=== PATIENT | male | born 2005 | race African-American/Black ===

== ENCOUNTER 2024-06-29 16:43 | Emergency (ER) | payer OTHER, SELFPAY ==
--- NOTE | ~2024-06-29 | XR_ITS ---
CHEST RADIOGRAPH, PA AND LATERAL CLINICAL HISTORY: CP that radiates down left arm . COMPARISON: None available TECHNIQUE: PA and lateral views of the chest. FINDINGS The cardiomediastinal silhouette is unremarkable. The lungs are clear. Visualized osseous structures and soft tissues are unremarkable. IMPRESSION: No focal infiltrate or effusion. Reviewed, dictated and finalized at location A. RE SYSTEMS ADMINISTRATOR
--- NOTE | 2024-06-29 16:45 | ECG_ITS ---
Test Date: 2024-06-29 16:49:21 Measurements Intervals [place] Rate: 73 P: 48 CT: 138 QRS: 10 QRSD: 84 T: 37 QT: 361 QTc: 398 Interpretive Statements SINUS RHYTHM DELAYED PRECORDIAL R/S TRANSITION BASELINE ARTIFACT- I, III, AVR, AVL, AVF BORDERLINE ECG No previous ECG available for comparison Electronically Signed On 06-29-2024 16:54:06 EXHIBITS CURATOR by Serjio Torres D.O.
--- NOTE | 2024-06-29 16:50 | ED_ITS ---
HPI - Chest Pain General Chief Complaint: Chest Pain <Leslee Samano PA-C - Last Filed: 06/29/24 16:51> Stated Complaint: chest pain <Leslee Samano PA-C - Last Filed: 06/29/24 16:51> Time Seen by Provider: 06/29/24 16:50 <Leslee Samano PA-C - Last Filed: 06/29/24 16:51> Focused HPI: This is a 18 year old male that presents to the ER for chest pain ongoing since this morning. The pain is tight in nature. Denies fever, cough, shortness of breath, lower extremity edema. GENERAL: Well-appearing, well-nourished, and in no acute distress. HEAD: Normocephalic, atraumatic. CHEST: Clear to auscultation. ?No respiratory distress. HEART: Regular rate and rhythm.? NEURO: ?Alert and oriented x3. Patient screened in triage and initial orders placed.? ?Additional care and disposition to be based upon?diagnostic testing and treatment. <Leslee Samano PA-C - Last Filed: 06/29/24 16:51> History of Present Illness HPI narrative: Patient is a 18-year-old gentleman who presents emergency department chief complaint of chest pain. The patient reports he started having pain this morning reports the left side of his chest and in the left shoulder area. The patient denies diaphoresis denies shortness of breath patient reports no trauma reports no prior cardiac history reports no significant of history of thromboembolic events or family history for high risk illness. <Eliot Tavarez MD - Last Filed: 06/29/24 21:02> Review of Systems Review of Systems: A 10 system review of systems was completed on the patient and is negative except for what is stated in the HPI. Nursing and ancillary documentation was reviewed. <Eliot Tavarez MD - Last Filed: 06/29/24 21:02> Exam Narrative: GENERAL: Well-appearing, well-nourished, and in no acute distress. HEAD: Normocephalic, atraumatic. EYES: PERRLA and EOMI. ENT: Nares clear, no rhinorrhea or epistaxis. Mucous membranes moist. NECK: Supple. CHEST: Clear to auscultation. No respiratory distress. HEART: Regular rate and rhythm. No murmur heard. Normal peripheral pulses. ABDOMEN: Soft, nontender, nondistended, normal active bowel sounds. EXTREMITIES: Normal range of motion. No edema. SKIN: Warm, dry, no rash. NEURO: No focal deficits. Alert and oriented x3. PSYCH: Normal mood and affect. <Eliot Tavarez MD - Last Filed: 06/29/24 21:02> Course Vital Signs Vital signs: Vital Signs Temperature 36.6 C 06/29/24 17:12 Pulse Rate 82 06/29/24 17:12 Respiratory Rate 18 06/29/24 17:12 Blood Pressure 145/90 H 06/29/24 17:12 Pulse Oximetry 100 06/29/24 17:12 Oxygen Delivery Room Air 06/29/24 17:12 Temperature 36.9 C 06/29/24 20:17 Pulse Rate 82 06/29/24 20:17 Respiratory Rate 16 06/29/24 20:17 Blood Pressure 130/90 06/29/24 20:17 Pulse Oximetry 100 06/29/24 20:17 Oxygen Delivery Room Air 06/29/24 19:33 <Leslee Samano PA-C - Last Filed: 06/29/24 16:51> Vital Signs Temperature 36.6 C 06/29/24 17:12 Pulse Rate 82 06/29/24 17:12 Respiratory Rate 18 06/29/24 17:12 Blood Pressure 145/90 H 06/29/24 17:12 Pulse Oximetry 100 06/29/24 17:12 Oxygen Delivery Room Air 06/29/24 17:12 Temperature 36.9 C 06/29/24 20:17 Pulse Rate 82 06/29/24 20:17 Respiratory Rate 16 06/29/24 20:17 Blood Pressure 130/90 06/29/24 20:17 Pulse Oximetry 100 06/29/24 20:17 Oxygen Delivery Room Air 06/29/24 19:33 <Eliot Tavarez MD - Last Filed: 06/29/24 21:02> MDM - Chest Pain MDM Narrative Medical decision making narrative: Differential diagnosis includes ACS, atypical chest pain, esophageal spasm, electrolyte abnormality, EKG showed no acute ischemic changes chest x-ray showed no focal infiltrate laboratory studies were obtained on the patient showed normal CBC normal CMP INR was 1 6 initial troponin was negative 3 hour repeat troponin is negative. <Eliot Tavarez MD - Last Filed: 06/29/24 21:02> Lab Data Result diagrams: 06/29/24 16:57 06/29/24 16:57 <Leslee Samano PA-C - Last Filed: 06/29/24 16:51> Labs: Lab Results 06/29/24 06/29/24 Range/Units 16:57 20:06 WBC 6.4 (4.5-10.0) K/mm3 RBC 5.15 (4.6-6.20) M/mm3 Hgb 14.4 (14.0-18.0) g/dL Hct 43.5 (42.0-52.0) % MCV 84.5 (80-100) fl MCH 28.0 (26-34) pg MCHC 33.1 (32-36) g/dl RDW 12.8 (11.5-14.5) % Plt Count 366 (150-375) k/mm3 MPV 10.3 (7.4-10.4) fl Immature Gran % (Auto) 0.2 (0-0.5) % Neut % (Auto) 50.1 (45.5-73.1) % Lymph % (Auto) 37.7 (18.3-44.2) % Parke % (Auto) 10.9 H (2.6-8.5) % Eos % (Auto) 0.5 (0-4.4) % Baso % (Auto) 0.6 (0.2-1.2) % Lymph # (Auto) 2.41 (0.9-3.2) K/mm3 Parke # (Auto) 0.7 H (0.1-0.6) K/mm3 Eos # (Auto) 0.0 (0-0.3) K/mm3 Baso # (Auto) 0.0 (0.0-0.1) K/mm3 Abs Immat Gran (auto) 0.01 (0.00-0.031) K/mm3 Absolute Neuts (auto) 3.2 (1.3-6.7) K/mm3 Absolute Nucleated RBC 0.000 (0.0-0.012) K/mm3 Nucleated RBC % 0.0 (0.0-0.2) % PT 19.4 H (11.1-14.7) Seconds INR 1.6 APTT 37.9 H (22.3-36.8) Seconds Sodium 139 (134-143) mmol/L Potassium 4.0 (3.4-5.0) mmol/L Chloride 104 (98-107) mmol/L Carbon Dioxide 27 (22-30) mmol/L Anion Gap 8 (4-12) mmol/L BUN 12 (8-21) mg/dL Creatinine 0.70 (0.7-1.3) mg/dL Estim Creat Clear Calc Not Reportable Estimated GFR > 60 (59 - ) Glucose 93 (65-110) mg/dL Calcium 9.2 (8.9-10.7) mg/dL Total Bilirubin 0.9 (0.2-1.3) mg/dL AST 32 (17-59) U/L ALT 38 (6-50) U/L Alkaline Phosphatase 110 (58-237) U/L Troponin I < 0.012 < 0.012 (0.000-0.034) ng/mL Total Protein 9.0 H (6.3-8.6) g/dL Albumin 4.6 (3.7-5.6) g/dL Lipase 46 (23-300) U/L <Leslee Samano PA-C - Last Filed: 06/29/24 16:51> Lab Results 06/29/24 06/29/24 Range/Units 16:57 20:06 WBC 6.4 (4.5-10.0) K/mm3 RBC 5.15 (4.6-6.20) M/mm3 Hgb 14.4 (14.0-18.0) g/dL Hct 43.5 (42.0-52.0) % MCV 84.5 (80-100) fl MCH 28.0 (26-34) pg MCHC 33.1 (32-36) g/dl RDW 12.8 (11.5-14.5) % Plt Count 366 (150-375) k/mm3 MPV 10.3 (7.4-10.4) fl Immature Gran % (Auto) 0.2 (0-0.5) % Neut % (Auto) 50.1 (45.5-73.1) % Lymph % (Auto) 37.7 (18.3-44.2) % Parke % (Auto) 10.9 H (2.6-8.5) % Eos % (Auto) 0.5 (0-4.4) % Baso % (Auto) 0.6 (0.2-1.2) % Lymph # (Auto) 2.41 (0.9-3.2) K/mm3 Parke # (Auto) 0.7 H (0.1-0.6) K/mm3 Eos # (Auto) 0.0 (0-0.3) K/mm3 Baso # (Auto) 0.0 (0.0-0.1) K/mm3 Abs Immat Gran (auto) 0.01 (0.00-0.031) K/mm3 Absolute Neuts (auto) 3.2 (1.3-6.7) K/mm3 Absolute Nucleated RBC 0.000 (0.0-0.012) K/mm3 Nucleated RBC % 0.0 (0.0-0.2) % PT 19.4 H (11.1-14.7) Seconds INR 1.6 APTT 37.9 H (22.3-36.8) Seconds Sodium 139 (134-143) mmol/L Potassium 4.0 (3.4-5.0) mmol/L Chloride 104 (98-107) mmol/L Carbon Dioxide 27 (22-30) mmol/L Anion Gap 8 (4-12) mmol/L BUN 12 (8-21) mg/dL Creatinine 0.70 (0.7-1.3) mg/dL Estim Creat Clear Calc Not Reportable Estimated GFR > 60 (59 - ) Glucose 93 (65-110) mg/dL Calcium 9.2 (8.9-10.7) mg/dL Total Bilirubin 0.9 (0.2-1.3) mg/dL AST 32 (17-59) U/L ALT 38 (6-50) U/L Alkaline Phosphatase 110 (58-237) U/L Troponin I < 0.012 < 0.012 (0.000-0.034) ng/mL Total Protein 9.0 H (6.3-8.6) g/dL Albumin 4.6 (3.7-5.6) g/dL Lipase 46 (23-300) U/L <Eliot Tavarez MD - Last Filed: 06/29/24 21:02> Discharge Plan Discharge Clinical Impression: Atypical chest pain <Leslee Samano PA-C - Last Filed: 06/29/24 16:51> Patient Disposition: Home, Self-Care <Leslee Samano PA-C - Last Filed: 06/29/24 16:51> Condition: Stable <Leslee Samano PA-C - Last Filed: 06/29/24 16:51> Instructions: Antibiotic Form, Chest Pain (ED) <Leslee Samano PA-C - Last Filed: 06/29/24 16:51> Follow-up/Referrals: Otoniel Douglas MD [Physician] - PHYSICIAN NOT ON STAFF,NONSTAFF [Non-Staff] - <Leslee Samano PA-C - Last Filed: 06/29/24 16:51> Time of Disposition: 20:59 <Leslee Samano PA-C - Last Filed: 06/29/24 16:51> 20:59 <Eliot Tavarez MD - Last Filed: 06/29/24 21:02>
[2024-06-29 17:01] LABS: Basophils Percent Auto 0.6 % (0.2-1.2); Eosinophils Percent Auto 0.5 % (0-4.4); Hematocrit 43.5 % (42.0-52.0); Hemoglobin 14.4 g/dL (14.0-18.0); Immature Granulocyte Absolute 0.01 K/mm3 (0.00-0.031); Immature Granulocyte Percent A 0.2 % (0-0.5); Lymphocytes Absolute Auto 2.41 K/mm3 (0.9-3.2); Lymphocytes Percent Auto 37.7 % (18.3-44.2); Mean Corpuscular HGB Conc 33.1 g/dl (32-36); Mean Corpuscular Volume 84.5 fl (80-100); Mean Platelet Volume 10.3 fl (7.4-10.4); Monocytes Absolute Auto 0.7 K/mm3 (0.1-0.6); Monocytes Percent Auto 10.9 % (2.6-8.5); Neutrophils Absolute Auto 3.2 K/mm3 (1.3-6.7); Neutrophils Percent Auto 50.1 % (45.5-73.1); Platelet Count Result 366 k/mm3 (150-375); Red Blood Count 5.15 M/mm3 (4.6-6.20); Red Cell Distribution Width 12.8 % (11.5-14.5); White Blood Count 6.4 K/mm3 (4.5-10.0)
[2024-06-29 17:12] VITALS: BP 145/90; PULSE 82; RESP 18; TEMP 36.6; O2SAT 100
[2024-06-29 17:14] LABS: INR 1.6; Prothrombin Time 19.4 Seconds (11.1-14.7)
[2024-06-29 17:16] LABS: Partial Thromboplastin Time 37.9 Seconds (22.3-36.8)
[2024-06-29 17:22] LABS: Alanine Aminotransferase 38 U/L (6-50); Albumin Level 4.6 g/dL (3.7-5.6); Alkaline Phosphatase 110 U/L (58-237); Anion Gap 8 mmol/L (4-12); Aspartate Amino Transferase 32 U/L (17-59); Bilirubin,Total 0.9 mg/dL (0.2-1.3); Blood Urea Nitrogen 12 mg/dL (8-21); Calcium 9.2 mg/dL (8.9-10.7); Carbon Dioxide 27 mmol/L (22-30); Chloride 104 mmol/L (98-107); Estimated Glomerular Filt Rate > 60; Glucose 93 mg/dL (65-110); Lipase 46 U/L (23-300); Sodium 139 mmol/L (134-143)
[2024-06-29 17:33] LABS: Troponin I < 0.012 ng/mL (0.000-0.034)
--- NOTE | 2024-06-29 19:57 | ECG_ITS ---
Test Date: 2024-06-29 20:01:04 Measurements Intervals [place] Rate: 70 P: 41 AL: 144 QRS: 17 QRSD: 83 T: 36 QT: 350 QTc: 378 Interpretive Statements SINUS RHYTHM WITH SINUS ARRHYTHMIA DELAYED PRECORDIAL R/S TRANSITION BASELINE ARTIFACT- I, III, AVR, AVL, AVF, V1, V3 BORDERLINE ECG Compared to ECG 06/29/2024 16:49:21 No significant changes Electronically Signed On 06-30-2024 06:06:39 BIBLE WORKER by Serjio Torres D.O.
[2024-06-29 20:17] VITALS: BP 130/90; PULSE 82; RESP 16; TEMP 36.9; O2SAT 100
[2024-06-29 20:48] LABS: Troponin I < 0.012 ng/mL (0.000-0.034)
[2024-06-29 21:06] VITALS: BP 130/87; PULSE 67; RESP 18; TEMP 36.7; O2SAT 99
== END 2024-06-29 21:07 | disposition home or self-care (01) ==
PROVIDERS: Physician Assistant; Emergency Provider Emergency Medicine
DX: R07.89 Other chest pain (principal)
CPT/HCPCS: 36415; 71046; 80053; 83690; 84484; 85025; 85610; 85730; 93005; 99284